=== PATIENT | female | born 1955 | race Caucasian/White ===

== ENCOUNTER 2018-03-19 11:32 | Outpatient (CLI) | payer OTHER, SELFPAY ==
[2018-03-19 13:24] LABS: TSH (W/Ref FT4) 0.01 uIU/mL (0.358-3.74)
[2018-03-19 14:34] LABS: FREE T4 1.05 ng/dL (0.76-1.46)
[2018-03-20 10:38] LABS: Thyroglobulin Antibody >500 U/mL (<61)
== END 2018-03-19 11:52 ==
PROVIDERS: PCP Family Medicine; Visit Provider Family Medicine
DX: E03.9 Hypothyroidism, unspecified (principal)
CPT/HCPCS: 36415; 84439; 84443; 86800

== ENCOUNTER 2018-06-29 10:35 | Outpatient (CLI) | payer OTHER, SELFPAY ==
[2018-06-29 13:36] LABS: TSH (W/Ref FT4) 0.01 uIU/mL (0.358-3.74)
[2018-06-29 13:53] LABS: FREE T4 1.68 ng/dL (0.76-1.46)
== END 2018-06-29 10:55 ==
PROVIDERS: PCP Family Medicine; Visit Provider Family Medicine
DX: E03.9 Hypothyroidism, unspecified (principal)
CPT/HCPCS: 36415; 84439; 84443

== ENCOUNTER 2018-07-14 02:23 | Outpatient (CLI) | payer OTHER, SELFPAY ==
[2018-07-14 11:57] LABS: TSH (W/Ref FT4) 0.01 uIU/mL (0.358-3.74)
== END 2018-07-14 02:43 ==
PROVIDERS: PCP Family Medicine; Visit Provider Family Medicine
DX: E03.9 Hypothyroidism, unspecified (principal)
CPT/HCPCS: 36415; 84439; 84443

== ENCOUNTER 2018-09-07 01:52 | Outpatient (CLI) | payer OTHER, SELFPAY ==
[2018-09-07 12:22] LABS: TSH (W/Ref FT4) 0.62 uIU/mL (0.358-3.74)
== END 2018-09-07 02:12 ==
PROVIDERS: PCP Family Medicine; Visit Provider Family Medicine
DX: E03.9 Hypothyroidism, unspecified (principal)
CPT/HCPCS: 36415; 84443

== ENCOUNTER 2018-11-23 02:07 | Outpatient (CLI) | payer OTHER, SELFPAY ==
[2018-11-23 11:16] LABS: TSH (W/Ref FT4) 2.83 uIU/mL (0.358-3.74)
== END 2018-11-23 02:27 ==
PROVIDERS: PCP Family Medicine; Visit Provider Family Medicine
DX: E03.9 Hypothyroidism, unspecified (principal)
CPT/HCPCS: 36415; 84443

== ENCOUNTER 2019-03-22 12:30 | Outpatient (REF) | payer OTHER, SELFPAY ==
--- NOTE | 2019-03-22 11:15 | PAPFT_PTH ---
PATIENT: BHUMI MEYER LOC: [facility] U#:[id number] AGE/SX: 63/F ROOM: RE03/22/[address]: Kassi Nassar MD, DC : 1955 BED: DIS: 03/22/2019 SPEC #: [id number] RECD: 03/22/19 13:11 STATUS: ABDIAZIZ REQ #: [id number] ROMY: 03/22/19 11:[address]: Kassi Nassar DEPT: [facility] Cytology RECD BY: Rebekah Crooks Tissues: 1 - CX/ENDOCX FOR PAP SMEARS Procedures: PAP THIN PREP/UVM Screening HPV DNA PROBE Comments: [id number]
== END 2019-03-22 12:50 ==
LOC: LBN 12:30
PROVIDERS: PCP Family Medicine; Visit Provider Family Medicine
DX: Z12.4 Encounter for screening for malignant neoplasm of cervix (principal); Z11.51 Encounter for screening for human papillomavirus (HPV)
CPT/HCPCS: 88142; 87624

== ENCOUNTER 2019-04-20 01:47 | Outpatient (CLI) | payer OTHER, SELFPAY ==
[2019-04-20 08:35] LABS: HCT 43.8 % (36.0-46.0); HGB 14.6 g/dL (12.0-15.5); Mean Corp. HGB Concentration 33.3 g/dL (32.0-36.0); Mean Corpuscular Hemoglobin 32.4 pg (27.0-33.0); Mean Corpuscular Volume 97.3 fL (80-95); Mean Platelet Volume 9.2 fL (8.0-11.0); Platelet Count 271 x1000/uL (130-400); RBC Distribution Width 13.2 % (11.7-14.6); White Blood Cell Count 5.55 k/cumm (4.4-10.8)
[2019-04-20 10:17] LABS: Iron 112 ug/dL (50-175)
[2019-04-20 10:24] LABS: ALT 29 U/L (14-59); AST 19 U/L (15-37); Alkaline Phosphatase 67 U/L (46-116); Anion Gap 6.8 mmol/L (3-11); BUN 21 mg/dL (7-18); Bilirubin, Total 0.5 mg/dL (0.2-1.0); CO2 30.2 mmol/L (21.0-32.0); CREATININE 1.04 mg/dL (0.55-1.02); Calcium 9.3 mg/dL (8.5-10.1); Chloride 106 mmol/L (98-107); Estimated GFR 53.02 (mL/min/1.73m2); Glucose 119 mg/dL (70-100); Potassium 4.7 mmol/L (3.5-5.1); Sodium 143 mmol/L (136-145); TSH (W/Ref FT4) 10.27 uIU/mL (0.36-3.74); Total Protein 7.5 g/dL (6.4-8.2)
[2019-04-20 10:52] LABS: FREE T4 0.84 ng/dL (0.76-1.46)
--- NOTE | 2019-04-20 11:22 | DI.MAMMO_ITS ---
EXAM: MG MAMMO SCREENING CLINICAL HISTORY: screening Z12.39 TECHNIQUE: Bilateral full field digital CC and MLO mammographic images were obtained with 3D tomosyn thesis and utilizing computer aided detection (CAD). COMPARISON: Available for comparison. FINDINGS: Masses/Architectural Distortion: There is a focal asymmetric density in the upper posterior right onelia ast seen on the mediolateral oblique view. This area should be further evaluated with a spot radha frank view. Ultrasound may be indicated at that time. Microcalcifications: No suspicious pleomorphic-type are seen. Skin Thickening/Nipple Retraction: None. IMPRESSION: 1. Additional views of the right breast as described above. BI-RADS Cat 0 - Assessment Incomplete: Need additional imaging evaluation Breast Density - Category B - Scattered areas of fibroglandular density A negative radiographic report should not delay biopsy if a dominant or clinically suspicious mass is present. Up to ten percent of cancers are not identified on mammography. A negative report may reinforce clinical impression. Adenosis and dense breasts may obscure an underlying neoplasm. False positive reports average 6 to 10%.
[2019-04-22 06:17] LABS: Vitamin D 25 Total 24.5 ng/ml (30-100)
== END 2019-04-20 02:07 ==
PROVIDERS: PCP Family Medicine; Visit Provider Family Medicine
DX: Z00.00 Encounter for general adult medical examination without abnormal findings (principal); Z12.31 Encounter for screening mammogram for malignant neoplasm of breast; R92.8 Other abnormal and inconclusive findings on diagnostic imaging of breast
CPT/HCPCS: 36415; 77063; 77067; 80053; 82306; 85027; 83540; 84439; 84443

== ENCOUNTER 2019-04-22 01:45 | Outpatient (CLI) | payer OTHER, SELFPAY ==
--- NOTE | 2019-04-22 13:47 | DI.MAMMO_ITS ---
EXAM: MG MAMMO SCREEN CALL BACK UNI CLINICAL HISTORY: F/U MAMMO 04/20,FOCAL ASYMMETRIC DENSITY UPPER POSTERIOR RT BREAST ON MLO V TECHNIQUE: An MLO spot compression view with tomography was performed for questioned asymmetric dens ity in the superior right breast. COMPARISON: 2010 through March,. FINDINGS: No persistent abnormality is seen on the additional view performed. The findings are consistent with overlying fibroglandular tissue. IMPRESSION: Category 1, negative mammogram. Yearly screening mammography is recommended. BI-RADS Cat 1 - Negative Breast Density - Category B - Scattered areas of fibroglandular density
== END 2019-04-22 02:05 ==
PROVIDERS: PCP Family Medicine; Visit Provider Family Medicine
DX: Z12.31 Encounter for screening mammogram for malignant neoplasm of breast (principal); R92.8 Other abnormal and inconclusive findings on diagnostic imaging of breast; N64.59 Other signs and symptoms in breast
CPT/HCPCS: 77063; 77067

== ENCOUNTER 2019-06-24 03:09 | Outpatient (CLI) | payer OTHER, SELFPAY ==
[2019-06-24 13:42] LABS: TSH (W/Ref FT4) 0.12 uIU/mL (0.36-3.74)
[2019-06-24 14:04] LABS: FREE T4 1.21 ng/dL (0.76-1.46)
== END 2019-06-24 03:29 ==
PROVIDERS: PCP Family Medicine; Visit Provider Family Medicine
DX: E03.9 Hypothyroidism, unspecified (principal)
CPT/HCPCS: 36415; 84439; 84443

== ENCOUNTER 2019-09-01 03:11 | Outpatient (CLI) | payer OTHER, SELFPAY ==
[2019-09-01 11:14] LABS: TSH (W/Ref FT4) 19.29 uIU/mL (0.36-3.74)
== END 2019-09-01 03:31 ==
PROVIDERS: PCP Family Medicine; Visit Provider Family Medicine
DX: E03.9 Hypothyroidism, unspecified (principal)
CPT/HCPCS: 36415; 84439; 84443

== ENCOUNTER 2020-03-24 02:02 | Outpatient (CLI) | payer OTHER, SELFPAY ==
[2020-03-24 13:37] LABS: TSH (W/Ref FT4) 7.46 uIU/mL (0.36-3.74)
[2020-03-24 13:55] LABS: FREE T4 0.75 ng/dL (0.76-1.46)
[2020-03-27 08:18] LABS: Vitamin D 25 Total 22.4 ng/ml (30-100)
== END 2020-03-24 02:22 ==
PROVIDERS: PCP Family Medicine; Visit Provider Family Medicine
DX: E03.9 Hypothyroidism, unspecified (principal); M81.0 Age-related osteoporosis without current pathological fracture
CPT/HCPCS: 36415; 82306; 84439; 84443